=== PATIENT | male | born 1965 | race Caucasian/White ===

== ENCOUNTER 2016-08-20 23:13 | Emergency (ER) | payer SELFPAY ==
[2016-08-20 23:26] VITALS: TEMP 98.2; BMI 22.6
[2016-08-20 23:40] LABS: AUTOMATED BASOPHIL 1.2 % (0-2); AUTOMATED LYMPH 42.8 % (17-44); AUTOMATED MONOCYTE 6.3 % (3-10); AUTOMATED NEUTROPHIL 47.7 % (45-76); MPV 8.8 fL (7.4-10.4)
[2016-08-20 23:50] LABS: BLOOD UREA NITROGEN 16 MG/DL (9-20); CALCIUM 9.1 MG/DL (8.4-10.2); CALCULATED OSMOLALITY 268 MOs/Kg (270-290); CHLORIDE 104 mEq/L (98-107); GLUCOSE 108 mg/dL (70-99); SODIUM LEVEL 138 mEq/L (137-146); TOTAL PROTEIN 7.4 G/DL (6.3-8.2)
[2016-08-20 23:51] LABS: PARTIAL THROMB. TIME 26.3 SEC (22-35); PT-INR 1.1
--- NOTE | 2016-08-21 00:31 | DIRPT ---
CLINICAL DATA: Chest pain for 1 day. EXAM: PORTABLE CHEST 1 VIEW COMPARISON: Chest radiograph December 07, 2012 FINDINGS: Cardiomediastinal silhouette is normal. The lungs are clear without pleural effusions or focal consolidations. Increased lung volumes suggest COPD. Trachea projects midline and there is no pneumothorax. Soft tissue planes and included osseous structures are non-suspicious. IMPRESSION: Probable COPD without superimposed acute cardiopulmonary process. Electronically Signed By: Isaias Chiu M.D. On: 08/21/2016 00:29
[2016-08-21] MEDS ORDERED: Pharmacy Review for Metformin - IV Contrast Given SCH (02:00)
--- NOTE | 2016-08-21 02:48 | DIRPT ---
CLINICAL DATA: LEFT-sided chest pain, nausea and shortness of breath for 8 hours. Similar symptoms yesterday with associated with dizziness. EXAM: CT ANGIOGRAPHY CHEST WITH CONTRAST TECHNIQUE: Multidetector CT imaging of the chest was performed using the standard protocol during bolus administration of intravenous contrast. Multiplanar CT image reconstructions and MIPs were obtained to evaluate the vascular anatomy. CONTRAST: 80 cc Isovue 370 COMPARISON: Chest radiograph August 21, [address] angiogram of the chest October 14, 2012 FINDINGS: PULMONARY ARTERY: Adequate contrast opacification of the pulmonary artery's. Main pulmonary artery is not enlarged. No pulmonary arterial filling defects to the level of the subsegmental branches. MEDIASTINUM: Heart and pericardium are unremarkable, no right heart strain. Thoracic aorta is normal course and caliber, unremarkable. No lymphadenopathy by CT size criteria. LUNGS: Tracheobronchial tree is patent, no pneumothorax. Mild central bronchial wall thickening. No pleural effusions, focal consolidations, pulmonary nodules or masses. Mild atelectasis in the lingula. Mild apical bullous changes. SOFT TISSUES AND OSSEOUS STRUCTURES: Included view of the abdomen is nonacute, status post cholecystectomy. Visualized soft tissues and included osseous structures appear normal. Scattered Schmorl's nodes. Review of the MIP images confirms the above findings. IMPRESSION: No acute pulmonary embolism. Mild lingular atelectasis. Mild bronchial wall thickening can be seen with reactive airway disease or bronchitis without focal consolidation. Electronically Signed By: Isaias Chiu M.D. On: 08/21/2016 02:45
--- NOTE | 2016-08-21 03:21 | EDPRACDOC ---
- General Information Chief Complaint: Chest Pain Stated Complaint: CHEST PAIN Time Seen by Provider: 08/21/16 02:00 Information Source: Patient Mode of Arrival: Car Home Medications: Home Medications Esomeprazole Mag Trihydrate [Nexium] 40 mg PO DAILY 10/12/12 Pantoprazole Sodium 40 mg PO HS 10/12/12 Gi Cocktail 2 tsp PO Q6 PRN 10/13/12 Azithromycin 250 mg PO DAILY #4 tablet 08/21/16 Prednisone [Deltasone, Orasone] 60 mg PO DAILY #15 tab 08/21/16 Allergies/Adverse Reactions: Allergies Allergy/AdvReac Type Severity Reaction Status Date / Time Penicillins Allergy Mild Unknown Verified 08/20/16 23:26 codeine [Codeine] Allergy Itching Verified 08/20/16 23:26 - History of Present Illness Onset: yesterday HPI: sharp CP x 2 episodes, brief mod in severity,no F/C, some cough, is a smoker, no N/V or diaphoresis, no h/o CAD or COPD, does have GERD. Chest Pain Location: Reports: Left Chest Pain Radiation: Reports: None Symptoms Occur: Reports: Suddenly Cardiac Risk Factors: Reports: Smoker Cardiac History of: Denies: IN, Cardiac Cath PE Risk Factors: Denies: Recent Trauma/Surgery, Immobilization Medications within 24 Hours: Denies: Aspirin Prehospital Care: Reports: None Pain Came On: Reports: Suddenly Pain Status: No Pain Pain Description: Reports: Sharp Pain Severity: Moderate Pain Worsens With: Reports: Nothing Pain Improves With: Reports: Nothing Associated Signs and Symptoms: Denies: SOB, Palpitations, Abdominal Pain, Calf Pain or Swelling ED Past Medical History - History Reviewed Yes Nurses notes reviewed and agree except as marked - Patient Medical History GI/ History: Reports: Gastroesophageal Reflux Psychological History: Reports: Anxiety Systemic History: Denies: Cancer - Family Medical History Reports: Cancer (mother), Cardiac Disorders - Social Medical History Smoking Status: Heavy tobacco smoker (5 or more cigarettes/day or daily pipe/ cigar) EDM Review of Systems - Review of Systems ROS Negative Except as Marked: Yes All systems reviewed and were negative except as marked - Physical Exam Constitutional: Alert (Awake), No apparent distress Oriented to: Time, Person, Place Last recorded Vital Signs: Last Vital Signs Temp 98.2 F 08/20/16 23:23 Pulse 66 08/21/16 02:39 Resp 20 08/21/16 02:39 BP 124/79 08/21/16 02:39 Pulse Ox 95 08/21/16 02:39 Oxygen Pulse Oxygen Saturation 95 O2 Device Room Air Oxygen Flow Rate Fraction of Inspired Oxygen ( FIO2) - HEENT Head: Normal ( normocephalic) Eye Exam: Normal (PERRL, EOMI, Sclera white) Oropharynx: Normal (Pharynx:Moist without exudate,Gums-no swelling) Tympanic Membrane: Normal ENT EAC: Normal TMJ: Normal Nose: No Symptoms Reported (septum midline) Neck: Normal (FROM, trachea at midline) - Respiratory/Cardiovascular Respiratory: Normal - CTA (BBS clear to auscultation without adventitious sounds ) Cardiovascular: Normal (RRR without murmur, gallop or rub) - GI Auscultation: Normal (NABS) Palpation: Normal (Soft,No rebound or guarding, non distended) Tenderness: Non tender Kennedy's Sign: Negative - Musculoskeletal Back: Normal (Non-Tender) Extremities: Normal (Normal tone, Pulses 2+ No cyanosis or edema, FROM) - Integumentary Skin: Normal, Warm, Dry Lymphatics: Normal (no adenopathy) - Neurologic Memory Impaired: Normal Motor Function: Normal (Normal tone, Pulses 2+ No cyanosis or edema, FROM) Cranial Nerve: Normal (CN II-X11 intact sensation, strength 5/5) Cerebellar: Normal Mood Description: Normal Perception: Normal - Action Patient received Aspirin within last 24 hours?: No ASA given in the ED: No Patient received Beta Kelle within last 24hrs: No - Re-evaluation Re-evaluation 1 Re-evaluation Time: 03:26 (no CP. VS WNL. Ct results hared with Pt. plan d/c home Rx Abx and pred. Pt agrees to PCP folow up and CP precautions. ) - Results 08/20/16 23:31 08/20/16 23:31 WBC 17.4 xk/uL (3.8-10.8) H 08/20/16 23:31 RBC 5.27 xM/uL (4.70-6.10) 08/20/16 23:31 Hgb 15.7 g/dL (14.0-18.0) 08/20/16 23:31 Hct 46.8 % (42-52) 08/20/16 23: MCV 89 fL (80-94) 08/20/16 23: MCH 29.8 pg (27-32) 08/20/16 23: MCHC 33.5 g/dl (33-36) 08/20/16 23: RDW 13.5 % (11.5-14.5) 08/20/16 23: Plt Count 201 xk/uL (130-400) 08/20/16: MPV 8.8 fL (7.4-10.4) 08/20/16 23: Neut % (Auto) 47.7 % (45-76) 08/20/16: Lymph % (Auto) 42.8 % (17-44) 08/20/16: Fleming % (Auto) 6.3 % (3-10) 08/20/16: Eos % (Auto) 2.0 % (0-5) 08/20/16: Baso % (Auto) 1.2 % (0-2) 08/20/16: Absolute Neuts (auto) 8.18 xk/uL (1.7-8.2) 08/20/16: Absolute Lymphs (auto) 7.31 xk/uL (0.65-4.75) H 08/20/16 23: PT 11.0 SEC (9.2-11.2) 08/20/16 23: INR 1.1 08/20/16 23: APTT 26.3 SEC (22-35) 08/20/16 23: Sodium 138 mEq/L (137-146) 08/20/16 23: Potassium 3.8 mEq/L (3.5-5.1) 08/20/16 23: Chloride 104 mEq/L (98-107) 08/20/16 23: Carbon Dioxide 23 mMOL/L (22-33) 08/20/16 23: Anion Gap 15 mEq/L (8-16) 08/20/16 23: BUN 16 MG/DL (9-20) 08/20/16 23: Creatinine 0.90 MG/DL (0.66-1.25) 08/20/16 23:31 Estimated GFR (MDRD) > 60 mL/min (>=60) 08/20/16 23:31 Glucose 108 mg/dL (70-99) H 08/20/16 23:31 Calculated Osmolality 268 MOs/Kg (270-290) L 08/20/16 23:31 Calcium 9.1 MG/DL (8.4-10.2) 08/20/16 23:31 Total Bilirubin 0.5 MG/DL (0.2-1.3) 08/20/16 23:31 AST 25 IU/L (17-59) 08/20/16 23:31 ALT 36 IU/L (21-72) 08/20/16 23:31 Alkaline Phosphatase 98 IU/L (38-126) 08/20/16 23:31 Troponin I < 0.01 ng/mL (<.04) 08/21/16 02:38 Vys-B-Vzhnjdyfenb Pept 48 pg/mL (0-900) 08/20/16 23:31 Total Protein 7.4 G/DL (6.3-8.2) 08/20/16 23:31 Albumin 4.1 G/DL (3.5-5.0) 08/20/16 23:31 Lab Results 08/21/16 08/20/16 08/20/16 02:38 23:31 23:31 WBC 17.4 H RBC 5.27 Hgb 15.7 Hct 46.8 MCV 89 MCH 29.8 MCHC 33.5 RDW 13.5 Plt Count 201 MPV 8.8 Neut % (Auto) 47.7 Lymph % (Auto) 42.8 Fleming % (Auto) 6.3 Eos % (Auto) 2.0 Baso % (Auto) 1.2 Absolute Neuts (auto) 8.18 Absolute Lymphs (auto) 7.31 H PT 11.0 INR 1.1 APTT 26.3 Sodium Potassium Chloride Carbon Dioxide Anion Gap BUN Creatinine Estimated GFR (MDRD) Glucose Calculated Osmolality Calcium Total Bilirubin AST ALT Alkaline Phosphatase Troponin I < 0.01 Hzx-U-Epuexdvalcs Pept Total Protein Albumin 08/20/16 23:31 WBC RBC Hgb Hct MCV MCH MCHC RDW Plt Count MPV Neut % (Auto) Lymph % (Auto) Fleming % (Auto) Eos % (Auto) Baso % (Auto) Absolute Neuts (auto) Absolute Lymphs (auto) PT INR APTT Sodium 138 Potassium 3.8 Chloride 104 Carbon Dioxide 23 Anion Gap 15 BUN 16 Creatinine 0.90 Estimated GFR (MDRD) > 60 Glucose 108 H Calculated Osmolality 268 L Calcium 9.1 Total Bilirubin 0.5 AST 25 ALT 36 Alkaline Phosphatase 98 Troponin I < 0.01 Amj-G-Xixnmbvoaud Pept 48 Total Protein 7.4 Albumin 4.1 Laboratory Results - last 24 hr 08/20/16 08/20/16 08/20/16 23:31 23:31 23:31 WBC 17.4 H RBC 5.27 Hgb 15.7 Hct 46.8 MCV 89 MCH 29.8 MCHC 33.5 RDW 13.5 Plt Count 201 MPV 8.8 Neut % (Auto) 47.7 Lymph % (Auto) 42.8 Fleming % (Auto) 6.3 Eos % (Auto) 2.0 Baso % (Auto) 1.2 Absolute Neuts (auto) 8.18 Absolute Lymphs (auto) 7.31 H PT 11.0 INR 1.1 APTT 26.3 Sodium 138 Potassium 3.8 Chloride 104 Carbon Dioxide 23 Anion Gap 15 BUN 16 Creatinine 0.90 Estimated GFR (MDRD) > 60 Glucose 108 H Calculated Osmolality 268 L Calcium 9.1 Total Bilirubin 0.5 AST 25 ALT 36 Alkaline Phosphatase 98 Troponin I < 0.01 Fnm-A-Bdhighhmdil Pept 48 Total Protein 7.4 Albumin 4.1 08/21/16 02:38 WBC RBC Hgb Hct MCV MCH MCHC RDW Plt Count MPV Neut % (Auto) Lymph % (Auto) Fleming % (Auto) Eos % (Auto) Baso % (Auto) Absolute Neuts (auto) Absolute Lymphs (auto) PT INR APTT Sodium Potassium Chloride Carbon Dioxide Anion Gap BUN Creatinine Estimated GFR (MDRD) Glucose Calculated Osmolality Calcium Total Bilirubin AST ALT Alkaline Phosphatase Troponin I < 0.01 Ggh-L-Jpvsonbyhms Pept Total Protein Albumin Laboratory Results 08/20/16 23:31 08/20/16 23:31 - Diagnostic Imaging Chest Image interpreted by: Radiologist EXAM: CT ANGIOGRAPHY CHEST WITH CONTRAST TECHNIQUE: Multidetector CT imaging of the chest was performed using the standard protocol during bolus administration of intravenous contrast. Multiplanar CT image reconstructions and MIPs were obtained to evaluate the vascular anatomy. CONTRAST: 80 cc Isovue 370 COMPARISON: Chest radiograph August 21, [address] angiogram of the chest October 14, 2012 FINDINGS: PULMONARY ARTERY: Adequate contrast opacification of the pulmonary artery's. Main pulmonary artery is not enlarged. No pulmonary arterial filling defects to the level of the subsegmental branches. MEDIASTINUM: Heart and pericardium are unremarkable, no right heart strain. Thoracic aorta is normal course and caliber, unremarkable. No lymphadenopathy by CT size criteria. LUNGS: Tracheobronchial tree is patent, no pneumothorax. Mild central bronchial wall thickening. No pleural effusions, focal consolidations, pulmonary nodules or masses. Mild atelectasis in the lingula. Mild apical bullous changes. SOFT TISSUES AND OSSEOUS STRUCTURES: Included view of the abdomen is nonacute, status post cholecystectomy. Visualized soft tissues and included osseous structures appear normal. Scattered Schmorl's nodes. Review of the MIP images confirms the above findings. IMPRESSION: No acute pulmonary embolism. Mild lingular atelectasis. Mild bronchial wall thickening can be seen with reactive airway disease or bronchitis without focal consolidation. Electronically Signed By: Isaias Chiu M.D. On: 08/21/2016 02:45 Decision Time to Discharge: 03:22 - Departure Yes I personally saw and evaluated the patient. Disposition: Home Condition: Stable Final Diagnosis: Bronchitis, Chest pain Instructions: Chest Pain (ED), Chest Wall Pain (ED) Referrals: Lazara Paez PA [Primary Care Provider] - One Week Prescriptions: New Azithromycin 250 mg PO DAILY #4 tablet Prednisone [Deltasone, Orasone] 60 mg PO DAILY #15 tab No Action Pantoprazole Sodium 40 mg PO HS Esomeprazole Mag Trihydrate [Nexium] 40 mg PO DAILY Gi Cocktail 2 tsp PO Q6 PRN PRN Reason: Abdominal Pain
[2016-08-21] MEDS ORDERED: AZITHROMYCIN 250 MG TAB PO ONE (03:25)
[2016-08-21 03:45] VITALS: BP 112/69; PULSE 87
== END 2016-08-21 03:45 | disposition home or self-care (01) ==
LOC: ED 23:13
DX: J40 Bronchitis, not specified as acute or chronic (principal); R07.9 Chest pain, unspecified
CPT/HCPCS: 36415; 71010; 71275; 80053; 83880; 84484; 85025; 85610; 85730; 93005; 99284; A9698; J3490